=== PATIENT | male | born 1955 | race Caucasian/White ===

== ENCOUNTER → 2017-05-16 | Day surgery (SDC) | payer BC ==
[~2017-05-16] VITALS: Ht 185.4 cm; Wt 80.8 kg
[~2017-05-16] MED LIST: KLONOPIN1 MG PO; TAB-A-VITE1 EACH PO; TRUVADA 200 MG1 EACH PO
== END | disposition disaster alternative care site (69) ==
LOC: GPOC 05-12 08:00 → GEND 09:48
PROC: 0DBM8ZX Excision of Descending Colon, Via Natural or Artificial Opening Endoscopic, Diagnostic (ICD-10-PCS; principal; 2017-05-16)
PROC: 0DB68ZX Excision of Stomach, Via Natural or Artificial Opening Endoscopic, Diagnostic (ICD-10-PCS; 2017-05-16)
DX: Z12.11 Encounter for screening for malignant neoplasm of colon (principal); D12.4 Benign neoplasm of descending colon; K64.8 Other hemorrhoids; K31.7 Polyp of stomach and duodenum; K21.9 Gastro-esophageal reflux disease without esophagitis; F41.9 Anxiety disorder, unspecified; Z88.0 Allergy status to penicillin; Z98.41 Cataract extraction status, right eye; Z98.42 Cataract extraction status, left eye; Z98.890 Other specified postprocedural states
CPT/HCPCS: J2001; J2250; J7030; J7120